=== PATIENT | male | born 1955 | race Caucasian/White ===

== ENCOUNTER 2017-11-29 09:27 | Emergency (ER) | payer OTHER ==
[~2017-11-29] VITALS: Ht 182.9 cm; Wt 80.0 kg
[~2017-11-29 09:27] MED LIST: IBUP-232 PO; PENI250T PO; RANI150UDC PO
[2017-11-29 09:28] VITALS: BP 156/77; PULSE 64; RESP 14; TEMP 98; O2SAT 100
--- NOTE | 2017-11-29 09:54 | PD ---
HPI Chief Complaint: Injury Time Seen by Provider: 09:49 Travel History International Travel<30 days: No Contact w/Intl Traveler<30days: No Traveled to known affect area: No History of Present Illness HPI 61-year-old male presents for evaluation of left hand pain. He reports that yesterday he was using a pole to knock sheet rock off of a roof. He accidentally hit his left hand against the siding. He now has pain and bruising localized to the dorsal aspect of the left hand overlying the fourth MCP joint. Pain is mild, aching, worse with palpation. No other complaints at this time. PFSH Past Medical History GERD: Yes Social History Alcohol Use: No Tobacco Use: Yes (1 PPD FOR 39 YEARS) Allergies-Medications (Allergen,Severity, Reaction): Coded Allergies: acetaminophen (Unverified Allergy, Mild, Nausea/Vomiting, 11/29/17) Uncoded Allergies: CILLINS (Allergy, Mild, Nausea/Vomiting, 05/06/08) NUPRIN (Allergy, Mild, Nausea/Vomiting, 05/06/08) Reported Meds & Prescriptions Reported Meds & Active Scripts Active Keflex (Cephalexin) 500 Mg Cap 500 Mg PO Q8H 5 Days Reported Zoloft (Sertraline HCl) 25 Mg Tab 25 Mg PO DAILY Ranitidine (Ranitidine HCl) 150 Mg Tab 150 Mg PO BID Wellbutrin SR 12 HR (Bupropion HCl) 100 Mg Tab 100 Mg PO Q12HR Review of Systems General / Constitutional: No: Fever, Chills Musculoskeletal: Positive: Pain, No: Limited ROM Skin: Positive Other (positive for bruising) Physical Exam Narrative GENERAL: Well-developed well-nourished male in no acute distress SKIN: Warm and dry. There is an area of focal contusion overlying the dorsal left hand fourth MCP joint. No open wounds. CARDIOVASCULAR: Regular rate and rhythm. No murmur appreciated. RESPIRATORY: No accessory muscle use. Clear to auscultation. Breath sounds equal bilaterally. Extremities: Skin as noted above. Tender to palpation dorsal left hand fourth MCP joint. The patient maintains full range of motion of the left hand. Capillary refill less than 2 seconds all digits left hand. Distal sensation preserved. Data Data Last Documented VS Vital Signs Date Time Temp Pulse Resp B/P (MAP) Pulse Ox O2 Delivery O2 Flow Rate FiO2 11/29/17 09:28 98.0 64 14 156/77 (103) 100 Orders Orders Hand, Complete ([id number]) (11/29/17 ) Lidocaine 1% Inj (Xylocaine 1% Inj) (11/29/17 10:30) Hand, Limited (2vws) (11/29/17 ) Ed Discharge Order (11/29/17 11:36) MDM Medical Decision Making Medical Screen Exam Complete: Yes Emergency Medical Condition: Yes Medical Record Reviewed: Yes Differential Diagnosis Contusion, fracture, sprain Narrative Course X-ray imaging reveals A tiny linear metallic foreign body is seen involving the dorsal soft tissues of the hand. This projects at the level of the fourth metacarpal head. It measures less than 1 mm in diameter and approximately 6 mm in length. Last tetanus vaccination 3 years ago. After verbal consent was obtained, foreign body removal was performed. Please see procedural note. Post procedural x-ray confirms that the entire foreign body was removed. The patient will be discharged with a short course of Keflex. Procedures Procedure Narrative Foreign body removal: The area was prepped with Betadine. Infiltrated with 1% lidocaine to achieve local anesthesia. A 0.5 cm linear incision was made. The foreign body was removed using forceps. The entire wound was irrigated thoroughly with normal saline. The wound was then closed with Dermabond. Postprocedural x-ray confirms foreign body removal. Patient tolerated procedure well. Diagnosis Primary Impression: Foreign body of hand, left Additional Instructions: Take the antibiotics as prescribed. Keep the wound clean and dry. Do not put any creams or lotions on the wound. The glue will flake off over the next few weeks. Med/Other Pt SpecificInfo: Prescription(s) given, Wound Care Scripts Cephalexin (Keflex) 500 Mg Cap 500 MG PO Q8H for Infection for 5 Days, #15 CAP 0 Refills Prov: Arron Stringer MD 11/29/17 Disposition: 01 DISCHARGE HOME Condition: Stable Tereso Cavazos Nov 29, 2017 09:54
[2017-11-29] MEDS ORDERED: BUPR100CR PO (09:55)
[2017-11-29] MEDS ORDERED: ZOLO25TA PO (09:55)
[2017-11-29] MEDS ORDERED: RANI150T PO (09:55)
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
[2017-11-29] MEDS ORDERED: LIDOCAINE HCL 1% 30 ML VIAL INFIL ONE (10:30)
--- NOTE | 2017-11-29 11:32 | RADRPT ---
EXAM DATE/TIME: 11/29/2017 11:14 [facility] COMPARISON: HAND LEFT COMPLETE ([id number]), November 29, 2017, 10:09. INDICATIONS : Post removal of foreign body. MEDICAL HISTORY : SURGICAL HISTORY : None. ENCOUNTER: Subsequent ACUITY: 1 day PAIN SCORE: 3/10 LOCATION: Left hand. FINDINGS: Soft tissue swelling remains evident along the dorsum of the hand across the carpal phalangeal joints . The foreign body overlying the distal fourth mid carpal has been removed. CONCLUSION: Foreign body has been removed. Persistent soft tissue swelling. Geovany Tejeda MD on November 29, 2017 at 11:29 Board Certified Radiologist. This report was verified electronically.
[2017-11-29] MEDS ORDERED: CEPH-460 PO (11:36)
== END 2017-11-29 11:48 | disposition home or self-care (01) ==
LOC: NEPK 09:27
DX: S60.552A Superficial foreign body of left hand, initial encounter (principal); W45.8XXA Other foreign body or object entering through skin, initial encounter; Y93.H3 Activity, building and construction; Y92.9 Unspecified place or not applicable; Z72.0 Tobacco use
CPT/HCPCS: 10120; 73120; 73130